=== PATIENT | male | born 1955 | race African-American/Black ===

== ENCOUNTER 2016-12-05 08:59 | Outpatient (CLI) | payer BC | END 2016-12-05 09:00 | disposition home or self-care (01) | DX: I10 Essential (primary) hypertension (principal); E78.5 Hyperlipidemia, unspecified; R73.01 Impaired fasting glucose ==

== ENCOUNTER 2017-04-01 10:49 | Outpatient (CLI) | payer BC | END 2017-04-01 10:50 | disposition home or self-care (01) | LOC: LAB.F 10:49 | PROVIDERS: ATTEND Nurse Practitioner Family | DX: Z85.46 Personal history of malignant neoplasm of prostate (principal); C61 Malignant neoplasm of prostate | CPT/HCPCS: 36415; 84153 ==

== ENCOUNTER 2022-04-22 09:23 | Outpatient (CLI) | payer OTHER ==
[2022-04-22 15:14] LABS: CALCIUM 9.9 mg/dL (8.5-10.3); POTASSIUM 4.8 mmol/L (3.5-5.0)
[2022-04-22 15:31] LABS: ALBUMIN 4.2 g/dL (3.2-5.5); ALBUMIN/GLOBULIN RATIO 1.3 (1.0-2.2); BILIRUBIN,TOTAL 1.2 mg/dL (0.2-1.0); CREATININE 1.7 mg/dL (0.6-1.2); TOTAL PROTEIN 7.4 g/dL (6.7-8.2)
== END 2022-04-22 09:24 | disposition home or self-care (01) ==
LOC: LAB.S 09:23
PROVIDERS: ATTEND Registered Nurse
DX: R74.8 Abnormal levels of other serum enzymes (principal)
CPT/HCPCS: 36415; 80053; 82306

== ENCOUNTER 2023-12-10 11:00 | Emergency (ER) | payer MEDICARE, OTHER ==
--- NOTE | 2023-12-10 11:36 | XRAY Report ---
PROCEDURE: Chest 1V INDICATIONS: SOA/DIFF BREATHING TECHNIQUE: One view of the chest was acquired. COMPARISON: None. FINDINGS: Surgical changes and devices: None. Lungs and pleura: No pleural effusions or pneumothorax. Lungs are clear. Mediastinum: Mediastinal contours appear normal. Heart size is normal. Likely eventration of the ri ght hemidiaphragm which is incompletely characterized on this single view. Bones and chest wall: No suspicious bony lesions. Overlying soft tissues appear unremarkable. IMPRESSION: No acute cardiopulmonary process. Reviewed by: Kathy Torres MD on 12/10/2023 11:35 AM [facility] Approved by: Kathy Torres MD on 12/10/2023 11:35 AM [facility] Station ID: [id number]
[2023-12-10 12:49] LABS: BASOPHILS # (AUTO) 0.1 10^3/uL (0.0-0.1); BASOPHILS % (AUTO) 1.9 %; EOSINOPHILS # (AUTO) 0.1 10^3/uL (0.0-0.7); EOSINOPHILS % (AUTO) 1.1 %; HCT - HEMATOCRIT 41.8 % (42.0-52.0); HGB - HEMOGLOBIN 13.5 g/dL (14.0-18.0); LYMPHOCYTES # (AUTO) 1.2 10^3/uL (1.5-3.5); LYMPHOCYTES % (AUTO) 16.1 %; MEAN CORPUSCULAR HEMOGLOBIN 28.3 pg (27.0-31.0); MEAN CORPUSCULAR HGB CONC 32.3 g/dL (32.0-36.0); MEAN CORPUSCULAR VOLUME 87.6 fL (80.0-94.0); MONOCYTES # (AUTO) 0.5 10^3/uL (0.0-1.0); MONOCYTES % (AUTO) 6.6 %; NEUTROPHILS # (AUTO) 5.4 10^3/uL (1.5-6.6); NEUTROPHILS % (AUTO) 73.8 %; PLT - PLATELET COUNT 200 10^3/uL (130-450); RED BLOOD COUNT 4.77 10^6/uL (4.70-6.10); RED CELL DISTRIBUTION WIDTH 14.9 % (12.0-15.0); WHITE BLOOD COUNT 7.3 x10^3/uL (4.8-10.8)
[2023-12-10 13:02] LABS: ALBUMIN 4.6 g/dL (3.2-5.5); ALBUMIN/GLOBULIN RATIO 1.5 (1.0-2.2); BILIRUBIN,TOTAL 1.5 mg/dL (0.2-1.0); CALCIUM 10.3 mg/dL (8.5-10.3); CREATININE 2.3 mg/dL (0.6-1.3); POTASSIUM 4.7 mmol/L (3.5-4.5); TOTAL PROTEIN 7.7 g/dL (6.4-8.9)
[2023-12-10 13:08] VITALS: BP 153/84; O2SAT 98
--- NOTE | 2023-12-10 15:40 | ED Physician Documentation ---
History of Present Illness - Stated complaint Stated Complaint: SOA - Chief complaint Chief Complaint: Resp - History obtained from History obtained from: Patient - Additonal information Additional information: The pt comes to the ED with CC of dyspnea on exertion that has been coming up over the past couple of months. He states he has been working with his doctor on this, and also sees a bioinformatics research technician for kidney failure (not on HD). 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 He was recently started on Jardiance, and feels like the sx got worse a fter he started this. He has had cardiac work-up before, which has been negative. He is not known to have any pulmonary conditions underlying. He is not a smoker. 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 He has arthritis in his feet, but is still active. He states he's been noticing that even walking back from the mailbox, he feels winded. No chest pain, nausea, sweating, or lightheadedness. No palpitations. No LE swelling. So far, work-up through his doctor has been negative. PD PAST MEDICAL HISTORY - Past Medical History Past Medical History: Yes Cardiovascular: Hypertension, High cholesterol Respiratory: Sleep apnea, CPAP use Endocrine/Autoimmune: None GI: GERD : Other HEENT: None Psych: None Musculoskeletal: Osteoarthritis Derm: None - Past Surgical History Past Surgical History: Yes Ortho: Knee replacement HEENT: Cataracts - Present Medications Home Medications: Ambulatory Orders Medication Instructions Recorded Confirmed Atorvastatin [Lipitor] 20 mg PO DAILY 05/12/23 05/12/23 Metoprolol Succinate [Toprol Xl] 50 mg PO DAILY 05/12/23 05/12/23 amLODIPine [Norvasc] 2.5 mg PO DAILY 05/12/23 05/12/23 Empagliflozin [Jardiance] 0.5 mg PO DAILY 12/10/23 - Allergies Allergies/Adverse Reactions: Allergies Allergy/AdvReac Type Severity Reaction Status Date / Time Penicillins Allergy Severe Anaphylaxis Verified 12/10/23 11:18 - Social History Does the pt smoke?: No Smoking Status: Never smoker Does the pt drink ETOH?: No Does the pt have substance abuse?: No - Immunizations Immunizations are current?: Yes - POLST Patient has POLST: No PD ED PE NORMAL - Vitals Vital signs reviewed: Yes - General General: Alert and oriented X 3, No acute distress, Well developed/nourished - HEENT HEENT: Atraumatic, PERRL, EOMI, Moist mucous membranes - Neck Neck: Supple, no meningeal sign - Cardiac Cardiac: RRR, No murmur, Strong equal pulses - Respiratory Respiratory: No respiratory distress, Clear bilaterally - Abdomen Abdomen: Soft, Non tender, Non distended - Derm Derm: Normal color, Warm and dry, No rash - Extremities Extremities: No deformity, No edema, No calf tenderness / cord - Neuro Neuro: Alert and oriented X 3, Other (grossly intact) - Psych Psych: Normal mood, Normal affect Results - Vitals Vitals: Oxygen O2 Source Room air - EKG (time done) 1234 EKG releavant findings:: EKG personally interpreted by author of this note. Relevant findings are: Rate: Rate (enter#) (87) Rhythm: NSR Rawlings: Normal Intervals: Normal RI QRS: Normal Ischemia: Normal ST segments, Non specific changes (borderline TW abnormalities) - Labs Labs: Laboratory Tests 12/10/23 12/10/23 12/10/23 12:39 12:39 12:39 WBC 7.3 RBC 4.77 Hgb 13.5 L Hct 41.8 L MCV 87.6 MCH 28.3 MCHC 32.3 RDW 14.9 Plt Count 200 MPV 10.0 Neut # (Auto) 5.4 Lymph # (Auto) 1.2 L Cowley # (Auto) 0.5 Eos # (Auto) 0.1 Baso # (Auto) 0.1 Absolute Nucleated RBC 0.00 Nucleated RBC % 0.0 Sodium 137 Potassium 4.7 H Chloride 107 Carbon Dioxide 22 Anion Gap 8.0 BUN 42 H Creatinine 2.3 H Estimated GFR (MDRD) 34 L Glucose 109 H Calcium 10.3 Total Bilirubin 1.5 H AST 16 ALT 11 Alkaline Phosphatase 125 H B-Natriuretic Peptide 67 Total Protein 7.7 Albumin 4.6 Globulin 3.1 Albumin/Globulin Ratio 1.5 Lipase 126 H - Rads (name of study) CXR Relevant Findings:: Final report received, See rad report (nad) PD Medical Decision Making - ED course Complexity details: reviewed results, re-evaluated patient, considered differential, d/w patient ED course: The pt was well-appearing in the ED. He reported gradually worsening ZHOU, with no acute worsening today. He had already been in the process of work-up for this with his doctor, and was also seeing nephrology for his kidney disease. He was worked up in the ED with labs, CXR, and EKG. His BNP was normal, and his kidney function showed a GFR of 39. His EKG was nonischemic, and CXR was unremarkable. I d/w pt that he may benefit from seeing a laboratory mechanical technician, and should talk with his PCP about referral. He has had negative cardiac eval previously, but should also speak with his doctor about having this re- evaluated. Any concerns about the Jardiance should also be brought up at that time. We have discussed the need for close follow-up, as well as the usual indications for return under these circumstances. Departure - Departure Disposition: 01 Home, Self Care Clinical Impression: Dyspnea on exertion Condition: Stable Instructions: ED Dyspnea Shortness of Breath Comments: Your laboratory studies overall look good. Your kidney function tests are roughly where they were on Cobb's Day, and your chest x-ray is clear. Your EKG looks great. At this point in time, it is not entirely certain what is causing your sense of shortness of breath with exertion, but there are a few follow-up test that may be helpful. As we discussed, it would be good for you to follow-up with your primary doctor to discuss having a stress test and an echocardiogram done. Although the lab we checked to look for potential congestive heart failure was normal, echo can still package pick up on subtleties that may help explain why you are having shortness of breath. Another helpful thing in follow-up may be to be referred to a laboratory mechanical technician, who can do specific pulmonary function testing to look at your respiratory strength and function. Please talk to your primary about referral for this, as well. For now, you should go ahead and make the medication changes as per your bioinformatics research technician's recommendations. Please call and schedule the next available appoint with your primary. Forms: PCP List Discharge Date/Time: 12/10/23 15:53
== END 2023-12-10 15:53 | disposition home or self-care (01) ==
LOC: ED 11:00
DX: R06.09 Other forms of dyspnea (principal); I10 Essential (primary) hypertension; E78.00 Pure hypercholesterolemia, unspecified; G47.30 Sleep apnea, unspecified; M19.90 Unspecified osteoarthritis, unspecified site; Z79.899 Other long term (current) drug therapy
CPT/HCPCS: 36415; 80053; 83690; 83880; 85025; 93005; 99283; 99284